=== PATIENT | male | born 1955 | race Caucasian/White ===

== ENCOUNTER 2025-06-20 11:50 | Emergency (ER) | payer OTHER ==
[~2025-06-20] VITALS: Ht 182.9 cm; Wt 87.0 kg
[2025-06-20 12:18] VITALS: TEMP 97.9
[2025-06-20 12:40] LABS: GLUCOMETER DEV NAME(LOC) ER.7; GLUCOSE,POINT OF CARE 174 MG/DL (70-110)
[2025-06-20 12:42] VITALS: BP 113/64; PULSE 86; RESP 16; O2SAT 99
[2025-06-20 12:54] LABS: PLATELET COUNT (AUTO) 317 K/uL (150-450); RED BLOOD CELL COUNT(AUTO) 4.21 MIL/uL (4.50-5.90); RED CELL DISTRIBUTION WIDTH 14.5 % (11.5-14.5); WHITE BLOOD COUNT (AUTO) 12.4 K/uL (4.5-11.0)
[2025-06-20 13:01] LABS: CALCIUM, TOTAL 9.0 mg/dL (8.8-10.5); CREATININE 1.77 mg/dL (0.60-1.30); GLOMERULAR FILTR. RATE CALC 38.0 mL/min (>60); GLUCOSE,RANDOM 135.0 mg/dL (70-110); SODIUM SERUM 139.0 mmol/L (136-145); UREA NITROGEN, BLOOD 22.0 mg/dL (7-18)
[2025-06-20 13:24] LABS: ASPARTATE AMINOTRANSFERASE 16.0 U/L (15-37); TOTAL PROTEIN, SERUM 6.8 g/dL (6.4-8.2)
[2025-06-20] MEDS ORDERED: POLY119P3 PO (15:38)
[2025-06-20] MEDS: POLYETHYLENE GLYCOL 3350 17 GM PACKET PO ONE (15:43)
== END 2025-06-20 16:02 | disposition home or self-care (01) ==
LOC: EMS 11:53
DX: K59.00 Constipation, unspecified (principal); R10.31 Right lower quadrant pain
CPT/HCPCS: 74176; 80048; 80076; 82962; 83735; 85025; 93005; 99284